=== PATIENT | female | born 1965 | race Caucasian/White ===

== ENCOUNTER 2021-06-11 12:47 | Emergency (ER) | payer OTHER ==
[2021-06-11 13:03] VITALS: BP 149/83
[2021-06-11] MEDS ORDERED: RABIES VACCINE 2.5 UNIT SYRINGE IM ONE (13:28)
--- NOTE | 2021-06-11 13:34 | ED Physician Documentation ---
History of Present Illness - Stated complaint Stated Complaint: BAT EXPOSURE - Chief complaint Chief Complaint: General - History obtained from History obtained from: Patient - History of Present Illness Timing: Yesterday - Additonal information Additional information: 56-year-old female who is visiting the [place] from [place] was in her home last night when she and her discovered a bat on a bag of dog food. The was able to throw a wash rag over the bat and with gardening gloves on he was able to move about outside. They are uncertain how long the bat was in the house. The bat was near the door and the assumption is he may have been just inside a brief period. Her has been asked to get rabies prophylaxis post exposure and the patient has come in as well. Her is in [place] and the patient is visiting for an art class. Review of Systems Constitutional: denies: Fever Respiratory: denies: Cough GI: denies: Vomiting PD PAST MEDICAL HISTORY - Allergies Allergies/Adverse Reactions: Allergies Allergy/AdvReac Type Severity Reaction Status Date / Time No Known Drug Allergies Allergy Verified 06/11/21 12:59 PD ED PE NORMAL - Vitals Vital signs reviewed: Yes (hypertensive mild ) - General General: Alert and oriented X 3, No acute distress, Well developed/nourished - HEENT HEENT: Atraumatic, PERRL, EOMI - Neck Neck: Supple, no meningeal sign, No bony TTP - Respiratory Respiratory: No respiratory distress - Derm Derm: Normal color, Warm and dry, No rash - Extremities Extremities: No deformity, No edema - Neuro Neuro: Alert and oriented X 3, 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 She is administered her first dose of RabAvert here in the emergency department. She is instructed to return on day 3 for a second dose she will have the remainder of that given in [place]. Departure - Departure Disposition: 01 Home, Self Care Clinical Impression: Exposure to bat without known bite Condition: Stable Instructions: Rabies Vaccine suspension for injection Follow-Up: Your, doctor [Other] Comments: You have been given the first dose of the rabies vaccine for postexposure prophylaxis. You will need to come back at day number 3-day #7 and day #14.
== END 2021-06-11 14:02 | disposition home or self-care (01) ==
LOC: ED 12:47
DX: Z20.3 Contact with and (suspected) exposure to rabies (principal); Z23 Encounter for immunization
CPT/HCPCS: 90471; 99282

== ENCOUNTER 2021-06-14 20:04 | Emergency (ER) | payer OTHER ==
[2021-06-14 20:11] VITALS: BP 117/77
[2021-06-14] MEDS ORDERED: RABIES VACCINE 2.5 UNIT SYRINGE IM ONE (20:14)
--- NOTE | 2021-06-14 20:43 | ED Physician Documentation ---
History of Present Illness - Stated complaint Stated Complaint: RABIES VACCINE - Chief complaint Chief Complaint: General - History obtained from History obtained from: Patient - History of Present Illness Timing: How many days ago (3), Other (here for 2nd rabies vaccine.) Severity Comments: had had bat exposure with it flying in house. No bites/scratches/wounds. Associated symptoms: did not have any problems with the first vaccine. Review of Systems Constitutional: denies: Fever, Chills PD PAST MEDICAL HISTORY - Allergies Allergies/Adverse Reactions: Allergies Allergy/AdvReac Type Severity Reaction Status Date / Time No Known Drug Allergies Allergy Verified 06/14/21 20:09 PD ED PE NORMAL - Vitals Vital signs reviewed: Yes - General General: Alert and oriented X 3, No acute distress, Well developed/nourished Results - Vitals Vitals: Vital Signs - 24 hr 06/14/21 20:09 Temperature 36.5 C Heart Rate 68 Respiratory 16 Rate Blood Pressure 117/77 O2 Saturation 98 Oxygen O2 Source Room air PD MEDICAL DECISION MAKING - ED course Complexity details: considered differential (given 2nd rabies vaccine wtihout problems.), d/w patient Departure - Departure Disposition: 01 Home, Self Care Clinical Impression: Rabies, need for prophylactic vaccination against Condition: Stable Record reviewed to determine appropriate education?: Yes Comments: Tylenol or ibuprofen if needed for mild pains or aches related to the vaccine. Otherwise you have 2 more vaccines in the series. Discharge Date/Time: 06/14/21 21:02
== END 2021-06-14 21:02 | disposition home or self-care (01) ==
LOC: ED 20:04
DX: Z29.14 Encounter for prophylactic rabies immune globulin (principal)
CPT/HCPCS: 90471